=== PATIENT | male | born 1970 | race African-American/Black ===

== ENCOUNTER 2024-09-30 01:47 | Inpatient (IN) | payer MEDICARE, MEDICAID ==
[~2024-09-30] VITALS: Ht 170.2 cm; Wt 79.8 kg
[2024-09-30 02:15] LABS: BASOPHILS % 0.7 % (0.0-2.0); EOSINOPHILS % 2.4 % (0.0-5.0); HEMATOCRIT. 41.3 % (42.0-52.0); HEMOGLOBIN. 14.1 g/dL (14.0-18.0); LYMPHOCYTES % 34.2 % (20.0-50.0); MEAN CORPUSCULAR HEMOGLOBIN 30.1 pg (28.0-32.0); MEAN CORPUSCULAR HGB CONC 34.1 g/dL (31.0-37.0); MEAN CORPUSCULAR VOLUME 88.4 fL (80.0-94.0); MEAN PLATELET VOLUME 7.9 fl (7.4-10.4); MONOCYTES % 7.8 % (2.0-8.0); NEUTROPHILS % 54.9 % (40.0-76.0); PLATELET 224 x1000/uL (130-400); RED BLOOD CELL COUNT 4.67 mill/uL (4.7-6.1); WHITE BLOOD COUNT 8.9 x1000/uL (4.5-11.0)
[2024-09-30 02:27] LABS: CHLORIDE 105 mEq/L (98-107); POTASSIUM 3.3 mEq/L (3.5-5.1); SODIUM 139 mEq/L (136-145)
[2024-09-30 02:28] LABS: CARBON DIOXIDE 27 mEq/L (21-32)
[2024-09-30 02:29] LABS: CALCIUM 9.6 mg/dL (8.7-10.4)
[2024-09-30 02:33] LABS: CREATININE 1.1 mg/dL (0.6-1.3); GLUCOSE 122 mg/dL (70-105)
[2024-09-30 02:34] LABS: ETHANOL BLOOD < 10 mg/dL (<10); UREA NITROGEN BLOOD 12 mg/dL (9-23)
[2024-09-30 02:35] LABS: ACETAMINOPHEN < 2 ug/mL (10-30); ALANINE AMINOTRANSFERASE 13 IU/L (10-49); ALBUMIN 4.5 g/dL (3.2-4.8); ASPARTATE AMINOTRANSFERASE 15 IU/L (<34); BILIRUBIN DIRECT 0.1 mg/dL (<=3.0)
[2024-09-30 02:36] LABS: BILIRUBIN TOTAL 0.3 mg/dL (0.1-1.0)
[2024-09-30] MEDS: POTASSIUM CHLORIDE 20MEQ TABLET SR PO ONE (04:30)
[2024-09-30 04:35] LABS: CLARITY URINE CLEAR (CLEAR); COLOR URINE YELLOW (YELLOW); GLUCOSE URINE NEGATIVE (NEGATIVE); KETONES URINE NEGATIVE (NEGATIVE); LEUKOCYTE ESTERASE URINE 1+ (NEGATIVE); NITRITE URINE NEGATIVE (NEGATIVE); OCCULT BLOOD URINE NEGATIVE (NEGATIVE); PH URINE 5.5 (4.5-8.0); PROTEIN URINE NEGATIVE (NEGATIVE); SPECIFIC GRAVITY URINE 1.018 (1.005-1.030); UROBILINOGEN URINE 0.2 E.U./dL (0.2-1.0)
[2024-09-30 04:38] LABS: *AMPHETAMINES SCREEN URINE NEGATIVE (NEGATIVE); *BARBITURATES SCREEN URINE NEGATIVE (NEGATIVE); *BENZODIAZEPINES SCREEN URINE NEGATIVE (NEGATIVE); *COCAINE SCREEN URINE NEGATIVE (NEGATIVE); CANNABINOID URINE SCREEN PRESUMPTIVE POSITIVE (NEGATIVE); ECSTASY MDMA SCREEN URINE NEGATIVE (NEGATIVE); METHADONE URINE SCREEN NEGATIVE (NEGATIVE); OPIATES URINE SCREEN NEGATIVE (NEGATIVE); PHENCYCLIDINE URINE SCREEN NEGATIVE (NEGATIVE)
[2024-09-30 05:26] LABS: SQUAMOUS EPITHELIAL CELL URINE FEW /lpf (RARE/1+)
[2024-09-30 05:27] LABS: RBC URINE 0-2 /hpf (0-2)
[2024-09-30 05:28] LABS: BACTERIA URINE NONE SEEN
[2024-09-30] MEDS: CEPHALEXIN 250MG CAPSULE PO SCH (13:15)
[2024-09-30] MEDS: SERTRALINE HCL 50MG TABLET PO SCH (15:00)
[2024-09-30] MEDS: DIVALPROEX SODIUM 500MG DR TABLET PO SCH (15:20)
[2024-09-30] MEDS: TEMAZEPAM 15MG CAPSULE PO SCH (21:51)
[2024-09-30] MEDS: TRAZODONE HCL 50MG TABLET PO SCH (21:51)
[2024-09-30] MEDS: RISPERIDONE 1MG TABLET PO SCH (21:52)
[2024-10-02] MEDS ORDERED: IPRATROPIUM/ALBUTEROL 0.5-3(2.5)MG/3ML NEB HHN PRN (23:45)
[2024-10-02] MEDS ORDERED: ACETAMINOPHEN 325MG TABLET PO PRN ×2 (23:45)
[2024-10-02] MEDS ORDERED: GUAIFENESIN 200MG/10ML SUGAR FREE UDC PO PRN (23:45)
[2024-10-02] MEDS ORDERED: ONDANSETRON HCL 4MG/2ML INJ IV PRN (23:45)
[2024-10-02] MEDS ORDERED: DOCUSATE SODIUM 100MG CAPSULE PO PRN (23:45)
[2024-10-02] MEDS ORDERED: CLONIDINE 0.1MG TABLET PO PRN (23:45)
[2024-10-03] VITALS: BP 124/69; PULSE 67; RESP 16; TEMP 36.8
[2024-10-03] MEDS: PANTOPRAZOLE 40MG DR TABLET PO SCH (06:10)
[2024-10-03 08:00] VITALS: BP 110/59; PULSE 59; RESP 18; TEMP 36.4; O2SAT 97
[2024-10-03 08:14] LABS: T4 FREE 1.62 ng/dL (0.89-1.76); THYROID STIMULATING HORMONE 1.5 uIU/mL (0.55-4.78)
[2024-10-03 08:18] LABS: BASOPHILS % 0.6 % (0.0-2.0); EOSINOPHILS % 2.7 % (0.0-5.0); HEMATOCRIT. 42.8 % (42.0-52.0); HEMOGLOBIN. 14.6 g/dL (14.0-18.0); LYMPHOCYTES % 22.1 % (20.0-50.0); MEAN CORPUSCULAR HEMOGLOBIN 30.3 pg (28.0-32.0); MEAN CORPUSCULAR HGB CONC 34.2 g/dL (31.0-37.0); MEAN CORPUSCULAR VOLUME 88.7 fL (80.0-94.0); MEAN PLATELET VOLUME 8.5 fl (7.4-10.4); MONOCYTES % 8.1 % (2.0-8.0); NEUTROPHILS % 66.5 % (40.0-76.0); PLATELET 221 x1000/uL (130-400); RED BLOOD CELL COUNT 4.83 mill/uL (4.7-6.1); RED CELL DISTRIBUTION WIDTH 13.9 % (11.6-14.6); WHITE BLOOD COUNT 7.9 x1000/uL (4.5-11.0)
[2024-10-03 12:00] VITALS: BP 126/76; PULSE 66; RESP 19; TEMP 36.8; O2SAT 97
[2024-10-03 16:00] VITALS: BP 108/62; PULSE 56; RESP 18; TEMP 36.4; O2SAT 98
[2024-10-03 20:00] VITALS: BP 105/56; PULSE 57; RESP 20; TEMP 36.4; O2SAT 98
[2024-10-04] VITALS: BP 104/66; PULSE 53; RESP 19; TEMP 36.4; O2SAT 98
[2024-10-04 04:00] VITALS: BP 110/58; PULSE 56; RESP 19; TEMP 36.7; O2SAT 97
[2024-10-04 07:15] LABS: CHLORIDE 105 mEq/L (98-107); POTASSIUM 4.4 mEq/L (3.5-5.1); SODIUM 141 mEq/L (136-145)
[2024-10-04 07:16] LABS: CALCIUM 9.3 mg/dL (8.7-10.4); CARBON DIOXIDE 30 mEq/L (21-32)
[2024-10-04 07:21] LABS: CREATININE 1.1 mg/dL (0.6-1.3); GLUCOSE 92 mg/dL (70-105); UREA NITROGEN BLOOD 7 mg/dL (9-23)
[2024-10-04 07:23] LABS: PHOSPHORUS 3.1 mg/dL (2.5-4.9)
[2024-10-04 07:29] LABS: HEMOGLOBIN 14.2 g/dL (14.0-18.0); MEAN CORPUSCULAR HEMOGLOBIN 30.1 pg (28.0-32.0); MEAN CORPUSCULAR HGB CONC 33.8 g/dL (31.0-37.0); MEAN CORPUSCULAR VOLUME 89.1 fL (80.0-94.0); PLATELET 225 x1000/uL (130-400); RED BLOOD CELL COUNT 4.72 mill/uL (4.7-6.1); RED CELL DISTRIBUTION WIDTH 13.9 % (11.6-14.6); WHITE BLOOD COUNT 6.9 x1000/uL (4.5-11.0)
[2024-10-04 08:00] VITALS: BP 108/57; PULSE 53; RESP 16; TEMP 36.8; O2SAT 100
[2024-10-04 12:00] VITALS: BP 110/65; PULSE 60; RESP 17; TEMP 36.9; O2SAT 98
[2024-10-04 16:00] VITALS: BP 106/70; PULSE 70; RESP 18; TEMP 36.7; O2SAT 99
[2024-10-04 20:00] VITALS: BP 100/57; PULSE 61; RESP 19; TEMP 36.5; O2SAT 95
[2024-10-05] VITALS: BP 105/66; PULSE 55; RESP 19; TEMP 36.6; O2SAT 97
[2024-10-05 08:00] VITALS: BP 95/50; PULSE 60; RESP 18; TEMP 36.6; O2SAT 95
[2024-10-05 11:45] VITALS: BP 109/54; PULSE 60; TEMP 97.8; O2SAT 95
[2024-10-05 12:31] VITALS: BP 105/69; PULSE 55; RESP 18; TEMP 36.7; O2SAT 95
== END 2024-10-05 12:57 | disposition home or self-care (01) | DRG 641 ==
LOC: ER 01:47 → 7EST 10-02 21:59 → EDBEDREQ 10-02 22:02 → EDBEDREQTM 10-02 22:02 → ENRESERV 10-02 22:41
PROVIDERS: ADMIT Internal Medicine; ATTEND Internal Medicine
PROC: GZ56ZZZ Individual Psychotherapy, Supportive (ICD-10-PCS; principal; 2024-09-30)
DX: E87.6 Hypokalemia (principal); N39.0 Urinary tract infection, site not specified; F20.9 Schizophrenia, unspecified; J44.9 Chronic obstructive pulmonary disease, unspecified; I10 Essential (primary) hypertension; F31.9 Bipolar disorder, unspecified; Z20.822 Contact with and (suspected) exposure to COVID-19; F41.9 Anxiety disorder, unspecified; Z79.899 Other long term (current) drug therapy
CPT/HCPCS: 36415; 80048; 80061; 80076; 80305; 80307; 80320; 80329; 81003; 83735; 84100; 84439; 84443; 85025; 85027; 87426; 99285; A4606; G0480